=== PATIENT | female | born 1990 | race Caucasian/White ===

== ENCOUNTER 2017-07-14 20:02 | Emergency (ER) | payer MEDICAID ==
[2017-07-14 22:18] VITALS: BP 122/84
== END 2017-07-14 22:18 | disposition home or self-care (01) ==
LOC: ED 20:02
DX: S93.401A Sprain of unspecified ligament of right ankle, initial encounter (principal); W19.XXXA Unspecified fall, initial encounter; Y93.89 Activity, other specified; Y99.8 Other external cause status; Y92.89 Other specified places as the place of occurrence of the external cause

== ENCOUNTER 2019-10-30 08:01 | Emergency (ER) | payer MEDICAID ==
[~2019-10-30] VITALS: Ht 172.7 cm; Wt 133.4 kg
[2019-10-30 08:15] VITALS: BP 157/94; Ht 172.7 cm; Wt 133.4 kg
== END 2019-10-30 10:53 | disposition home or self-care (01) ==
LOC: ED 08:01
DX: J22 Unspecified acute lower respiratory infection (principal)